=== PATIENT | female | born 1975 | race African-American/Black ===

== ENCOUNTER 2020-12-29 10:33 | Inpatient (IN) ==
[2020-12-29 11:11] LABS: Bacteria,Urine Occasional /HPF (Few); Bilirubin,Urine Negative (Negative); Blood, Urine Large mg/dL (Negative); Glucose,Urine (UA) Negative (Negative); Hyaline Casts,Urine 3 /LPF (0-3); Ketones,Urine Negative (Negative); Mucus,Urine Moderate /LPF (Occasional); Nitrite,Urine Negative (Negative); Protein,Urine 30 MG/DL; RBC,Urine 2 /HPF (0-4); Squamous Epithelial Cell,Urine Moderate /HPF (0-10); Urine Appearance CLOUDY (Clear); Urine Color Amber (Yellow); Urine Specific Gravity 1.017 (1.001-1.035); Urine Urobilinogen < 2.0 EU/DL (0.2-1.0); WBC,Urine 5 /HPF (0-6)
[2020-12-29] MEDS ORDERED: SODIUM CHLORIDE 0.9% 1,000 ML IV STA (11:35)
[2020-12-29] MEDS ORDERED: ONDANSETRON 4 MG/2 ML VIAL IV STA (11:35)
[2020-12-29] MEDS ORDERED: MORPHINE 4 MG/1 ML VIAL IV STA ×2 (11:35→13:05)
[2020-12-29 12:20] LABS: Basophils % 0.1 % (0.0-0.8); Hematocrit 43.8 VOL% (35.7-47.0); Hemoglobin 14.5 GM/DL (12.0-16.0); Immature Granulocytes % 0.4 %; Immature Granulocytes Absolute 0.05 #; Lymphocytes # 0.9 10*3/uL (1.4-4.0); Mean Corpuscular HGB Conc 33.1 GM/DL (32-36); Mean Corpuscular Volume 97.6 FL (87-102); Mean Platelet Volume 10.4 FL (9.6-12.0); Monocytes % 5.5 % (1.7-12.7); Platelet Count 305 T/CUMM (130-400); Red Blood Count 4.49 MC/CUMM (3.8-5.5); Red Cell Distribution Width 13.3 % (9.3-17.3); White Blood Count 12.9 T/CUMM (4-12)
[2020-12-29 12:48] LABS: Bilirubin,Total 1.8 MG/DL (0.2-1.0); Calcium 9.5 MG/DL (8.5-10.1); Osmolality,Calculated 275.1 MOS/KG (273-304); Potassium 3.8 MMOL/L (3.5-5.1); Total Protein 8.9 G/DL (6.4-8.2)
[2020-12-29] MEDS ORDERED: hydrALAZINE 20 MG/1 ML VIAL IV PRN (14:17)
[2020-12-29] MEDS ORDERED: DEXTROSE 50% 25 GM/50 ML VIAL IV PRN (14:17)
[2020-12-29] MEDS ORDERED: GLUCAGON 1 MG VIAL IM PRN (14:17)
[2020-12-29] MEDS: SODIUM CHLORIDE 0.9% 1,000 ML IV SCH (17:09)
[2020-12-29] MEDS: ENOXAPARIN 40 MG/0.4 ML SYRINGE SUBCUT SCH (17:10)
[2020-12-29] MEDS: ONDANSETRON 4 MG/2 ML VIAL IV PRN (20:55)
[2020-12-29] MEDS: MORPHINE 4 MG/1 ML VIAL IV PRN (20:57)
[2020-12-29] MEDS: atenoloL 50 MG TABLET PO SCH (21:21)
[2020-12-30] MEDS: SODIUM CHLORIDE 0.9% 1,000 ML IV SCH ×3 (02:48→21:02)
[2020-12-30] MEDS: ONDANSETRON 4 MG/2 ML VIAL IV PRN ×2 (03:10→22:58)
[2020-12-30] MEDS: MORPHINE 4 MG/1 ML VIAL IV PRN ×3 (03:12→23:01)
[2020-12-30 06:02] LABS: Basophils % 0.1 % (0.0-0.8); Hematocrit 38.5 VOL% (35.7-47.0); Hemoglobin 12.9 GM/DL (12.0-16.0); Immature Granulocytes % 0.6 %; Lymphocytes # 1.1 10*3/uL (1.4-4.0); Lymphocytes % 6.6 % (21.3-54.2); Mean Corpuscular HGB Conc 33.5 GM/DL (32-36); Mean Corpuscular Volume 97.7 FL (87-102); Mean Platelet Volume 10.4 FL (9.6-12.0); Monocytes % 6.2 % (1.7-12.7); Neutrophils % 86.5 % (38.7-73.9); Platelet Count 242 T/CUMM (130-400); Red Blood Count 3.94 MC/CUMM (3.8-5.5); Red Cell Distribution Width 13.4 % (9.3-17.3); White Blood Count 16.1 T/CUMM (4-12)
[2020-12-30 06:40] LABS: Albumin 3.2 G/DL (3.4-5.0); Bilirubin,Total 1.5 MG/DL (0.2-1.0); Calcium 8.5 MG/DL (8.5-10.1); Osmolality,Calculated 283.3 MOS/KG (273-304); Potassium 3.3 MMOL/L (3.5-5.1); Risk Ratio 2.55; Total Protein 7.4 G/DL (6.4-8.2)
[2020-12-30 06:46] LABS: Thyroid Stimulating Hormone 0.42 uIU/ml (0.358-3.74)
[2020-12-30] MEDS: POTASSIUM CHLORIDE 20 MEQ TABLET PO PRN ×3 (08:56→14:10)
[2020-12-30] MEDS: amLODIPine 5 MG TABLET PO SCH (08:56)
[2020-12-30] MEDS: lisinopriL 10 MG TABLET PO SCH (08:56)
[2020-12-30] MEDS: PIPERACILLIN/TAZOBACTAM 3,375 MG in SODIUM CHLORIDE 0.9% 100 ML IV SCH ×2 (09:49→16:10)
[2020-12-30] MEDS: ACETAMINOPHEN 325 MG TABLET PO PRN ×2 (09:49→17:59)
[2020-12-30] MEDS: ENOXAPARIN 40 MG/0.4 ML SYRINGE SUBCUT SCH (14:11)
[2020-12-30] MEDS: atenoloL 50 MG TABLET PO SCH (21:00)
[2020-12-31] MEDS: PIPERACILLIN/TAZOBACTAM 3,375 MG in SODIUM CHLORIDE 0.9% 100 ML IV SCH ×3 (02:35→16:01)
[2020-12-31 05:50] LABS: Basophils % 0.2 % (0.0-0.8); Eosinophils % 0.1 % (0.00-10.9); Hematocrit 35.8 VOL% (35.7-47.0); Hemoglobin 11.5 GM/DL (12.0-16.0); Immature Granulocytes Absolute 0.15 #; Lymphocytes # 1.3 10*3/uL (1.4-4.0); Lymphocytes % 8.2 % (21.3-54.2); Mean Corpuscular HGB Conc 32.1 GM/DL (32-36); Mean Corpuscular Volume 101.7 FL (87-102); Mean Platelet Volume 10.3 FL (9.6-12.0); Monocytes % 8.2 % (1.7-12.7); Neutrophils % 82.3 % (38.7-73.9); Platelet Count 213 T/CUMM (130-400); Red Blood Count 3.52 MC/CUMM (3.8-5.5); Red Cell Distribution Width 13.6 % (9.3-17.3); White Blood Count 15.7 T/CUMM (4-12)
[2020-12-31 06:08] LABS: Albumin 2.7 G/DL (3.4-5.0); Bilirubin,Total 1.5 MG/DL (0.2-1.0); Calcium 7.7 MG/DL (8.5-10.1); Osmolality,Calculated 282.3 MOS/KG (273-304); Potassium 3.7 MMOL/L (3.5-5.1); Total Protein 6.7 G/DL (6.4-8.2)
[2020-12-31] MEDS: SODIUM CHLORIDE 0.9% 1,000 ML IV SCH ×2 (06:33→21:17)
[2020-12-31] MEDS: amLODIPine 5 MG TABLET PO SCH (09:17)
[2020-12-31] MEDS: MULTIVITAMIN (CENTRUM) TABLET PO SCH (09:17)
[2020-12-31] MEDS: lisinopriL 10 MG TABLET PO SCH (09:17)
[2020-12-31] MEDS: MORPHINE 4 MG/1 ML VIAL IV PRN ×3 (10:15→22:27)
[2020-12-31] MEDS: ONDANSETRON 4 MG/2 ML VIAL IV PRN (10:21)
[2020-12-31] MEDS: ENOXAPARIN 40 MG/0.4 ML SYRINGE SUBCUT SCH (14:20)
[2020-12-31 14:49] LABS: Hepatitis B Core IgM Quant 0.08 Index; Hepatitis B Surface Ag Quant < 0.10 Index; Hepatitis B Surface Ag Result Non-Reactive (NonReactive); Hepatitis C Virus Ab Quant 0.14 Index; Hepatitis C Virus Ab Result Non-Reactive (NonReactive)
[2020-12-31] MEDS: ACETAMINOPHEN 325 MG TABLET PO PRN (21:16)
[2020-12-31] MEDS: atenoloL 50 MG TABLET PO SCH (21:16)
[2021-01-01] MEDS: PIPERACILLIN/TAZOBACTAM 3,375 MG in SODIUM CHLORIDE 0.9% 100 ML IV SCH ×3 (01:10→16:27)
[2021-01-01] MEDS: SODIUM CHLORIDE 0.9% 1,000 ML IV SCH ×2 (05:00→13:25)
[2021-01-01 06:11] LABS: Basophils % 0.1 % (0.0-0.8); Eosinophils % 0.1 % (0.00-10.9); Hematocrit 32.3 VOL% (35.7-47.0); Hemoglobin 10.3 GM/DL (12.0-16.0); Immature Granulocytes % 0.8 %; Immature Granulocytes Absolute 0.11 #; Lymphocytes # 1.1 10*3/uL (1.4-4.0); Lymphocytes % 8.2 % (21.3-54.2); Mean Corpuscular HGB Conc 31.9 GM/DL (32-36); Mean Corpuscular Volume 101.9 FL (87-102); Mean Platelet Volume 10.3 FL (9.6-12.0); Monocytes % 8.8 % (1.7-12.7); Platelet Count 219 T/CUMM (130-400); Red Blood Count 3.17 MC/CUMM (3.8-5.5); Red Cell Distribution Width 13.5 % (9.3-17.3); White Blood Count 13.8 T/CUMM (4-12)
[2021-01-01 06:12] LABS: Albumin 2.4 G/DL (3.4-5.0); Bilirubin,Direct 0.23 MG/DL (0.0-0.20); Bilirubin,Indirect 0.8 MG/DL (0.0-1.0); Calcium 7.9 MG/DL (8.5-10.1); Osmolality,Calculated 275.5 MOS/KG (273-304); Potassium 4.2 MMOL/L (3.5-5.1); Total Protein 6.8 G/DL (6.4-8.2)
[2021-01-01] MEDS: lisinopriL 10 MG TABLET PO SCH (08:10)
[2021-01-01] MEDS: amLODIPine 5 MG TABLET PO SCH (08:11)
[2021-01-01] MEDS: MULTIVITAMIN (CENTRUM) TABLET PO SCH (08:11)
[2021-01-01] MEDS: MORPHINE 4 MG/1 ML VIAL IV PRN ×3 (11:42→23:52)
[2021-01-01] MEDS: ACETAMINOPHEN 325 MG TABLET PO PRN (12:51)
[2021-01-01] MEDS: atenoloL 50 MG TABLET PO SCH (21:10)
[2021-01-02] MEDS: PIPERACILLIN/TAZOBACTAM 3,375 MG in SODIUM CHLORIDE 0.9% 100 ML IV SCH ×3 (01:52→16:57)
[2021-01-02 05:42] LABS: Basophils % 0.2 % (0.0-0.8); Eosinophils % 0.2 % (0.00-10.9); Hematocrit 33.1 VOL% (35.7-47.0); Hemoglobin 10.8 GM/DL (12.0-16.0); Immature Granulocytes % 0.6 %; Immature Granulocytes Absolute 0.08 #; Lymphocytes # 1.5 10*3/uL (1.4-4.0); Lymphocytes % 11.1 % (21.3-54.2); Mean Corpuscular HGB Conc 32.6 GM/DL (32-36); Mean Corpuscular Volume 100.6 FL (87-102); Mean Platelet Volume 10.2 FL (9.6-12.0); Monocytes % 11.8 % (1.7-12.7); Neutrophils % 76.1 % (38.7-73.9); Platelet Count 256 T/CUMM (130-400); Red Blood Count 3.29 MC/CUMM (3.8-5.5); Red Cell Distribution Width 13.7 % (9.3-17.3); White Blood Count 13.3 T/CUMM (4-12)
[2021-01-02 06:03] LABS: Albumin 2.4 G/DL (3.4-5.0); Calcium 8.2 MG/DL (8.5-10.1); Osmolality,Calculated 278.4 MOS/KG (273-304); Potassium 3.7 MMOL/L (3.5-5.1)
[2021-01-02] MEDS: SODIUM CHLORIDE 0.9% 1,000 ML IV SCH ×3 (06:06→14:04)
[2021-01-02 06:07] LABS: Albumin 2.5 G/DL (3.4-5.0); Bilirubin,Direct 0.22 MG/DL (0.0-0.20); Bilirubin,Indirect 0.6 MG/DL (0.0-1.0); Bilirubin,Total 0.8 MG/DL (0.2-1.0); Calcium 8.2 MG/DL (8.5-10.1); Osmolality,Calculated 280.3 MOS/KG (273-304); Potassium 3.7 MMOL/L (3.5-5.1); Total Protein 7.1 G/DL (6.4-8.2)
[2021-01-02] MEDS: lisinopriL 10 MG TABLET PO SCH (09:00)
[2021-01-02] MEDS: amLODIPine 5 MG TABLET PO SCH (09:00)
[2021-01-02] MEDS ORDERED: fentaNYL 100 MCG/2 ML VIAL ONE (10:20)
[2021-01-02] MEDS ORDERED: MIDAZOLAM 2 MG/2 ML VIAL ONE (10:20)
[2021-01-02] MEDS: MULTIVITAMIN (CENTRUM) TABLET PO SCH (10:36)
[2021-01-02] MEDS ORDERED: propofoL 200 MG/20 ML VIAL IV ONE ×2 (11:55)
[2021-01-02] MEDS ORDERED: ONDANSETRON 4 MG/2 ML VIAL ONE (11:55)
[2021-01-02] MEDS ORDERED: SEVOFLURANE 1 UNIT/15 MINUTE INH ONE ×6 (11:55→12:36)
[2021-01-02] MEDS ORDERED: SUCCINYLCHOLINE 200 MG/10 ML VIAL ONE (11:55)
[2021-01-02] MEDS ORDERED: DEXAMETHASONE 4 MG/1 ML VIAL ONE (11:55)
[2021-01-02] MEDS ORDERED: LIDOCAINE 2% 5 ML VIAL ONE (11:55)
[2021-01-02] MEDS ORDERED: ROCURONIUM 50 MG/5 ML VIAL IV ONE (11:55)
[2021-01-02] MEDS ORDERED: GLYCOPYRROLATE 0.4 MG/2 ML VIAL ONE (12:27)
[2021-01-02] MEDS ORDERED: NEOSTIGMINE 10 MG/10 ML VIAL ONE (12:27)
[2021-01-02] MEDS ORDERED: TISSUE ADHESIVE 1 EACH APPLICATOR TOP ONE (12:28)
[2021-01-02] MEDS ORDERED: SUGAMMADEX 200 MG/2 ML VIAL IV ONE (12:42)
[2021-01-02] MEDS ORDERED: HYDROmorphone 2 MG/1 ML VIAL IV PRN (15:46)
[2021-01-02] MEDS: HYDROmorphone 2 MG/1 ML VIAL IV PRN (18:03)
[2021-01-02] MEDS: atenoloL 50 MG TABLET PO SCH (20:32)
[2021-01-03] MEDS: PIPERACILLIN/TAZOBACTAM 3,375 MG in SODIUM CHLORIDE 0.9% 100 ML IV SCH ×3 (00:26→20:23)
[2021-01-03] MEDS: SODIUM CHLORIDE 0.9% 1,000 ML IV SCH ×4 (00:27→21:20)
[2021-01-03] MEDS: HYDROmorphone 2 MG/1 ML VIAL IV PRN ×2 (00:33→20:46)
[2021-01-03 05:34] LABS: Basophils % 0.2 % (0.0-0.8); Hematocrit 30.2 VOL% (35.7-47.0); Hemoglobin 9.7 GM/DL (12.0-16.0); Lymphocytes % 8.9 % (21.3-54.2); Mean Corpuscular HGB Conc 32.1 GM/DL (32-36); Mean Corpuscular Volume 100.7 FL (87-102); Mean Platelet Volume 10.3 FL (9.6-12.0); Monocytes % 7.6 % (1.7-12.7); Neutrophils % 82.6 % (38.7-73.9); Platelet Count 262 T/CUMM (130-400); Red Cell Distribution Width 13.6 % (9.3-17.3); White Blood Count 12.2 T/CUMM (4-12)
[2021-01-03 05:35] LABS: Immature Granulocytes % 0.7 %; Immature Granulocytes Absolute 0.08 #; Lymphocytes # 1.1 10*3/uL (1.4-4.0)
[2021-01-03 05:36] LABS: INR 1.1; PT Patient Result 11.8 SECS (9.8-11.9)
[2021-01-03 06:03] LABS: Albumin 2.3 G/DL (3.4-5.0); Bilirubin,Total 0.7 MG/DL (0.2-1.0); Calcium 7.9 MG/DL (8.5-10.1); Osmolality,Calculated 279.4 MOS/KG (273-304); Total Protein 6.7 G/DL (6.4-8.2)
[2021-01-03] MEDS: lisinopriL 10 MG TABLET PO SCH (09:27)
[2021-01-03] MEDS: amLODIPine 5 MG TABLET PO SCH (09:27)
[2021-01-03] MEDS: MULTIVITAMIN (CENTRUM) TABLET PO SCH (09:31)
[2021-01-03] MEDS ORDERED: INDOMETHACIN SUPP 50 MG SUPP RECTAL ONE (09:32)
[2021-01-03] MEDS: LACTATED RINGERS 1,000 ML IV SCH ×2 (10:37→12:13)
[2021-01-03] MEDS: INDOMETHACIN SUPP 50 MG SUPP RECTAL ONE ×2 (10:37→11:30)
[2021-01-03] MEDS ORDERED: ONDANSETRON 4 MG/2 ML VIAL ONE (11:10)
[2021-01-03] MEDS ORDERED: MIDAZOLAM 2 MG/2 ML VIAL ONE (11:10)
[2021-01-03] MEDS ORDERED: SEVOFLURANE 1 UNIT/15 MINUTE INH ONE ×2 (11:10→12:29)
[2021-01-03] MEDS ORDERED: ROCURONIUM 50 MG/5 ML VIAL IV ONE (11:10)
[2021-01-03] MEDS ORDERED: propofoL 200 MG/20 ML VIAL IV ONE (11:10)
[2021-01-03] MEDS ORDERED: LIDOCAINE 2% 5 ML VIAL ONE (11:10)
[2021-01-03] MEDS ORDERED: fentaNYL 100 MCG/2 ML VIAL ONE (11:31)
[2021-01-03] MEDS ORDERED: SUGAMMADEX 200 MG/2 ML VIAL IV ONE (11:55)
[2021-01-03] MEDS: atenoloL 50 MG TABLET PO SCH (20:24)
[2021-01-04] MEDS: SODIUM CHLORIDE 0.9% 1,000 ML IV SCH ×2 (04:31→14:09)
[2021-01-04] MEDS: PIPERACILLIN/TAZOBACTAM 3,375 MG in SODIUM CHLORIDE 0.9% 100 ML IV SCH ×2 (04:31→14:09)
[2021-01-04 09:05] LABS: Albumin 2.4 G/DL (3.4-5.0); Bilirubin,Total 0.5 MG/DL (0.2-1.0); Potassium 3.6 MMOL/L (3.5-5.1)
[2021-01-04] MEDS: amLODIPine 5 MG TABLET PO SCH (09:09)
[2021-01-04] MEDS: MULTIVITAMIN (CENTRUM) TABLET PO SCH (09:09)
[2021-01-04] MEDS: lisinopriL 10 MG TABLET PO SCH (09:09)
[2021-01-04 11:53] VITALS: BP 148/85
== END 2021-01-04 15:20 | disposition home health service (06) | DRG 417 ==
LOC: N.ED 10:33 → N.EDINP 14:17 → N.5E 16:54
PROVIDERS: ADMIT Internal Medicine; ATTEND Internal Medicine
PROC: LAPCHOL (2021-01-02 11:05)
PROC: ERCPWSP (ICD-10-PCS; 2021-01-03 11:05)